=== PATIENT | male | born 1990 | race Caucasian/White ===

== ENCOUNTER 2017-03-20 12:29 | Emergency (ER) | payer BC ==
--- NOTE | 2017-03-20 15:03 | EDPHY ---
H & P Stated Complaint: l shoulder inj Time Seen by Provider: 03/20/17 14:56 HPI/ROS: CHIEF COMPLAINT: Left shoulder pain HISTORY OF PRESENT ILLNESS: The patient is a 26-year-old man who was skiing and caught an edge and fell onto his left shoulder. This happened just prior to arrival. Complains of pain in left shoulder. No pain in his elbow or arm. No neck or head injury. He denies other complaints. REVIEW OF SYSTEMS: Constitutional: denies: chills, fever, recent illness, recent injury EENTM: denies: blurred vision, double vision, nose congestion Respiratory: denies: cough, shortness of breath Cardiac: denies: chest pain, irregular heart rate, lightheadedness, palpitations Gastrointestinal/Abdominal: denies: abdominal pain, diarrhea, nausea, vomiting, blood streaked stools Genitourinary: denies: dysuria, frequency, hematuria, pain Musculoskeletal: See HPI Skin: denies: lesions, rash, jaundice, bruising Neurological: denies: headache, numbness, paresthesia, tingling, dizziness, weakness Hematologic/Lymphatic: denies: blood clots, easy bleeding, easy bruising Immunologic/allergic: denies: HIV/AIDS, transplant EXAM: GENERAL: Well-appearing, well-nourished and in no acute distress. HEAD: Atraumatic, normocephalic. EYES: Pupils equal round and reactive to light, extraocular movements intact, sclera anicteric, conjunctiva are normal. ENT: TMs normal, nares patent, oropharynx clear without exudates. Moist mucous membranes. NECK: Normal range of motion, supple without lymphadenopathy or JVD. LUNGS: Breath sounds clear to auscultation bilaterally and equal. No wheezes rales or rhonchi. HEART: Regular rate and rhythm without murmurs, rubs or gallops. ABDOMEN: Soft, nontender, normoactive bowel sounds. No guarding, no rebound. No masses appreciated. BACK: No CVA tenderness, no spinal tenderness, step-offs or deformities EXTREMITIES: Left shoulder pain and mild deformity. Normal strain range of motion of elbow and wrist. Normal pulses. No neck pain. NEUROLOGICAL: Cranial nerves II through XII grossly intact. Normal speech, normal gait. 5/5 strength, normal movement in all extremities, normal sensation PSYCH: Normal mood, normal affect. SKIN: Warm, dry, normal turgor, no visible rashes or lesions. Source: Patient Exam Limitations: No limitations - Personal History Current Tetanus/Diphtheria Vaccine: Yes - Medical/Surgical History Hx Asthma: No Hx Chronic Respiratory Disease: No Hx Diabetes: No Hx Cardiac Disease: No Hx Renal Disease: No Hx Cirrhosis: No Hx Alcoholism: No Hx HIV/AIDS: No Hx Splenectomy or Spleen Trauma: No Other PMH: denies - Family History Significant Family History: No pertinent family hx - Social History Smoking Status: Never smoked Alcohol Use: Sober Drug Use: None Constitutional: Initial Vital Signs Temperature (C) 36.9 C 03/20/17 12:48 Heart Rate 58 L 03/20/17 12:48 Respiratory Rate 17 03/20/17 12:48 Blood Pressure 106/62 03/20/17 12:48 O2 Sat (%) 100 03/20/17 12:48 O2 Delivery Mode Room Air Allergies/Adverse Reactions: No Known Allergies Allergy (Unverified 03/20/17 12:48) Home Medications: Medication Instructions Recorded Hydrocodone/APAP 5/325 [[place] 1 - 2 tab PO Q4H PRN #14 tab 03/20/17 5/325 (RX)] Medical Decision Making - Diagnostics Imaging: Discussed imaging studies w/ grinding mill operator Radiologist ED Course/Re-evaluation: The patient has a left shoulder. I will treat him with a sling. We discussed anti-inflammatories, ice and rest. He is happy with this plan. He declines further workup or treatment at this time. He denies head neck or back injury. Differential Diagnosis: Partial list of the Differential diagnosis considered include but were not limited to; shoulder separation, dislocation, clavicle fracture and although unlikely based on the history and physical exam, I also considered infection, neck a, head injury. I discussed these differential diagnoses and the plan with the patient as well as the usual and expected course. The patient understands that the diagnosis is provisional and that in medicine we are not always correct and that further workup is often warranted. Usual and customary warnings were given. All of the patient's questions were answered. The patient was instructed to return to the emergency department should the symptoms at all worsen or return, otherwise to followup with the physician as we discussed. Departure - Departure Disposition: Home, Routine, Self-Care Clinical Impression: Separation of left acromioclavicular joint, type 3 Qualifiers: Encounter type: initial encounter Qualified Code(s): S43.102A - Unspecified dislocation of left acromioclavicular joint, initial encounter Condition: Fair Instructions: Acromioclavicular Separation (ED) Additional Instructions: Keep your left arm in the sling except for showering. Call the orthopedist tomorrow. Apply ice for 20-30 minutes several times a day. Take Ibuprofen and Tylenol as needed for pain. Referrals: ASHLEY SALAZAR [Other] - As per Instructions Yunier Felix MD [Medical Doctor] - 5-7 days, if not improved Prescriptions: Hydrocodone/APAP 5/325 [[place] 5/325 (RX)] 1 - 2 tab PO Q4H PRN #14 tab PRN Reason: Pain, Moderate
[2017-03-20 15:23] VITALS: BP 125/74; PULSE 78; RESP 14; TEMP 98.1; O2SAT 98
== END 2017-03-20 15:22 | disposition home or self-care (01) ==
DX: S43.102A Unspecified dislocation of left acromioclavicular joint, initial encounter (principal); V00.321A Fall from snow-skis, initial encounter; Y99.8 Other external cause status; Y93.23 Activity, snow (alpine) (downhill) skiing, snowboarding, sledding, tobogganing and snow tubing
CPT/HCPCS: A4565